=== PATIENT | female | born 1950 | race Caucasian/White ===

== ENCOUNTER 2017-07-01 15:12 | Outpatient (CLI) | payer BC, MEDICARE ==
--- NOTE | 2017-07-01 16:30 | RAD ---
2 VIEWS ABDOMEN: Date: 07/01/17 HISTORY: Loose bowel movements for past 2 weeks. FINDINGS: There are calcifications overlying both the superior pole and inferior pole left renal shadow, likely related to left nephrolithiasis. Largest calculus overlying the inferior pole measures 6.0 mm. No ad ditional suspicious calcifications are seen. The right renal shadow is mostly obscured by bowel gas a nd retained fecal material in the colon. Multiple phleboliths overlie the pelvis, which limits evalua tion for suspicious calcifications in the region of the distal ureters. Bowel gas pattern is overall nonspecific. Degenerative changes noted in the spine. IMPRESSION: 1. Left nephrolithiasis. 2. Nonspecific bowel gas pattern. POS: [facility]
== END 2017-07-01 15:13 | disposition home or self-care (01) ==
LOC: SCSRAD 15:12
PROVIDERS: ATTEND Family Medicine
DX: N20.0 Calculus of kidney (principal); R10.84 Generalized abdominal pain
CPT/HCPCS: 74019

== ENCOUNTER 2017-10-09 07:24 | Day surgery (SDC) | payer BC ==
[2017-10-08 17:13] VITALS: BMI 22.4
[2017-10-09] MEDS ORDERED: PROPOFOL 200 MG/20 ML VIAL ONE (09:19)
[2017-10-09] MEDS ORDERED: Dexamethasone 20 MG/5 ML VIAL ONE (09:19)
[2017-10-09] MEDS ORDERED: diphenhydrAMINE 50 MG/ML VIAL ONE (09:19)
[2017-10-09] MEDS ORDERED: Metoclopramide HCl 10 MG/2 ML VIAL ONE (09:19)
[2017-10-09] MEDS ORDERED: ePHEDrine/0.9% NaCl/PF SYRINGE 50 mg/10 ml ONE (09:19)
[2017-10-09] MEDS ORDERED: Lidocaine 1% PF 5 ML VIAL ONE (09:19)
--- NOTE | 2017-10-09 09:32 | RAD ---
ABDOMEN 1 VIEW: Date: 10/09/17 HISTORY: Preoperative exam. COMPARISON: None. FINDINGS: Nonspecific bowel gas pattern. No suspicious densities projecting over either renal silhouette or dena ng the course of either ureter. Phleboliths in the left and right hemipelvis are noted. IMPRESSION: Nonspecific bowel gas pattern. POS: [facility]
[2017-10-09] MEDS ORDERED: Fentanyl 100 MCG/2 ML VIAL ONE (09:39)
[2017-10-09] MEDS ORDERED: Iothalamate Meglumine 60% 50 ML VIAL FS ONE (10:00)
--- NOTE | 2017-10-09 12:23 | OP ---
DATE OF PROCEDURE: 10/09/2017 PREOPERATIVE DIAGNOSIS: Left ureteral stone. POSTOPERATIVE DIAGNOSIS: Left ureteral stone. PROCEDURE PERFORMED: Left ESWL. SURGEON: Dr. Juan Banegas. ANESTHETIC: General. ESTIMATED BLOOD LOSS: Not recorded. FINDINGS: She had a filling defect in the mid left ureter, just lateral and distal to the transverse process, this was treated with 1000 shocks and appeared to completely disappear. She also had anoth er filling defect down in the distal ureter that was treated with 2000 shocks. It may well have been a stone or a piece of the stone that was proximal. It is difficult to tell, but this did also appea r to completely break up and disappear, although it took about 2000 shocks to do that. No stent was left at the end of the case. OPERATIVE TECHNIQUE: After obtaining written and verbal consent from the patient, [facility] She received some IV antibiotics. She was placed in supine position on the desiree tment table. A KUB did not obviously show the stone in the proximal ureter, which is where it was 2 days ago on CAT scan. She had phleboliths in the pelvis. None of them had looked all that suspiciou s for stone. For this reason, she was placed in the dorsal lithotomy position, sterilely prepped and draped and cystoscopy was performed. The retrograde study was done that did show a filling defect i n the mid ureter. She was coupled with the lithotripter unit, taken out of and we did leave a Pollac k catheter in the left ureter, secured to a Steve catheter coming out of her urethra, so we could inj ect contrast and we treated this area and it disappeared after about 1000 shocks. We then slowly bro ught the Pollack catheter down. Injecting contrast, we did find another area in the pelvis where the re was a filling defect that we treated with a total of 2000 shocks and it broke up more like a stone in this region. It is hard to tell as these are probably not very dense, I mean the one in the dist al ureter was more typical of a stone, though filling defect in the proximal ureter certainly was con sistent with not an air bubble. I am not sure if one of these represents the stone and the other one does not, but we did treat both of these areas with suspicion that they were stones. At the end of the procedure, contrast would come down easily by the area where the distal stone was. For this reas on, a stent was not passed. She was, at this point, awakened, extubated, and [facility].
== END 2017-10-09 14:40 | disposition home or self-care (01) ==
LOC: SDC 07:24
PROVIDERS: ATTEND Urology
PROC: 0TF7XZZ Fragmentation in Left Ureter, External Approach (ICD-10-PCS; principal; 2017-10-09)
DX: N20.1 Calculus of ureter (principal); I10 Essential (primary) hypertension; Z79.899 Other long term (current) drug therapy
CPT/HCPCS: 74018; C1758; J1100; J1200; J2001; J2704; J2765; J3010; Q9961

== ENCOUNTER 2018-10-03 13:11 | Emergency (ER) | payer BC ==
[2018-10-03 13:36] LABS: #Eosinphils 0.1 thou/uL (0.0-0.7); #Lymphocytes 1.1 thou/uL (1.20-3.40); #Monocytes 0.4 thou/uL (0.11-0.59); #Neutrophils 3.7 thou/uL (1.40-6.50); %Basophils 0.4 % (0.0-1.0); %Eosinophils 1.1 % (0.0-10.0); %Lymphocytes 21.2 % (21.0-51.0); %Monocytes 6.8 % (0.0-10.0); %Neutrophils 70.5 % (42.0-75.0); Hemoglobin 14.5 g/dL (12.0-16.0); Mean Corpuscular HGB CONC 34.3 g/dL (32.0-36.0); Mean Corpuscular Hemoglobin 31.2 pg (27.0-31.0); Mean Corpuscular Volume 90.9 fL (78.0-98.0); Mean Platelet Volume 6.8 fL (7.4-10.4); Platelet Count 215 thou/uL (130-400); RBC Distribution Width 11.3 % (11.5-14.5); Red Blood Cell (RBC) Count 4.64 mill/uL (4.20-5.40); White Blood Cell (WBC) Count 5.2 thou/uL (4.8-10.8)
--- NOTE | 2018-10-03 13:38 | RAD ---
XR Chest 1 View Portable HISTORY: Chest pain COMPARISON: 08/14/2016 FINDINGS: The heart size is normal. The lungs are well expanded without focal areas of consolidation, pneumothorax or pleural effusions. IMPRESSION: No radiographic evidence of acute cardiopulmonary process.
[2018-10-03 14:05] LABS: ALT (SGPT) 12 U/L (8-55); AST (SGOT) 17 U/L (5-34); Albumin 4.3 g/dL (3.4-4.8); Alkaline Phosphatase 80 U/L (40-150); Anion Gap 10 mmol/L (10-20); BUN (Urea Nitrogen) 16 mg/dL (9.8-20.1); Bilirubin, Total 0.5 mg/dL (0.2-1.2); Calc. Creatinine Clearance 0 mL/min (70-130); Calcium 9.7 mg/dL (7.8-10.44); Carbon Dioxide 26 mmol/L (23-31); Chloride 107 mmol/L (98-107); Estimated GFR-MDRD 80; Globulin 2.2 g/dL (2.4-3.5); Glucose 146 mg/dL (80-115); Potassium 3.7 mmol/L (3.5-5.1); Protein, Total 6.5 g/dL (6.0-8.3); Sodium 139 mmol/L (136-145)
== END 2018-10-03 14:40 | disposition home or self-care (01) ==
LOC: ERS 13:11
DX: R07.9 Chest pain, unspecified (principal); I10 Essential (primary) hypertension; F41.9 Anxiety disorder, unspecified
CPT/HCPCS: 71045; 80053; 84484; 85025; 93005

== ENCOUNTER 2019-12-30 12:40 | Outpatient (CLI) | payer BC ==
--- NOTE | 2019-12-30 13:15 | RAD ---
XR Lumbar Spine Bending Min 4V History: Low back pain Comparison: None. Findings: 5 nonrib-bearing lumbar type vertebrae. Moderate facet arthrosis at L4-5 high-grade facet a rthrosis at L5-S1. Narrowed interspinous space L2-S1 with flattening of the spinous processes sclerosis and subcortical cysts. 1 mm L3-4 and 2 mm L4-5 retrolisthesis. Advanced L5-S1 degenerative disc space height loss. No signif icant translation with flexion or extension. Narrowing of the SI joints bilaterally with sclerosis and osteophyte formation. Lung bases are clear. Impression: Moderate spondylosis. No abnormal translation with flexion or extension.
== END 2019-12-30 12:41 | disposition home or self-care (01) ==
LOC: SCSRAD 12:40
PROVIDERS: ATTEND Family Medicine
DX: M51.36 Other intervertebral disc degeneration, lumbar region (principal)
CPT/HCPCS: 72120

== ENCOUNTER 2020-02-04 09:06 | Outpatient (CLI) | payer OTHER | END 2020-02-04 09:07 | disposition home or self-care (01) | PROVIDERS: ATTEND Family Medicine | DX: M43.16 Spondylolisthesis, lumbar region (principal); M43.18 Spondylolisthesis, sacral and sacrococcygeal region; M46.96 Unspecified inflammatory spondylopathy, lumbar region ==

== ENCOUNTER 2021-09-04 12:06 | Observation (INO) | payer BC ==
[~2021-09-04 12:06] MED LIST: Iopamidol-370 76% 500 ML 1 ML ONE
[2021-09-04 13:00] LABS: #Monocytes 0.4 thou/uL (0.11-0.59); #Neutrophils 4.7 thou/uL (1.40-6.50); %Basophils 0.1 % (0.0-1.0); %Eosinophils 0.5 % (0.0-10.0); %Lymphocytes 16.6 % (21.0-51.0); %Monocytes 6.4 % (0.0-10.0); %Neutrophils 76.3 % (42.0-75.0); Hemoglobin 16.5 g/dL (12.0-16.0); Mean Corpuscular HGB CONC 32.6 g/dL (32.0-36.0); Mean Corpuscular Hemoglobin 30.2 pg (27.0-31.0); Mean Corpuscular Volume 92.8 fL (78.0-98.0); Mean Platelet Volume 6.9 fL (7.4-10.4); Platelet Count 237 thou/uL (130-400); RBC Distribution Width 11.3 % (11.5-14.5); Red Blood Cell (RBC) Count 5.44 mill/uL (4.20-5.40); White Blood Cell (WBC) Count 6.1 thou/uL (4.8-10.8)
[2021-09-04 13:16] LABS: ALT (SGPT) 21 U/L (8-55); AST (SGOT) 18 U/L (5-34); Albumin 4.5 g/dL (3.4-4.8); Alkaline Phosphatase 85 U/L (40-110); Anion Gap 15 mmol/L (10-20); BUN (Urea Nitrogen) 20 mg/dL (9.8-20.1); Calc. Creatinine Clearance 0 mL/min (70-130); Calcium 9.6 mg/dL (7.8-10.44); Carbon Dioxide 29 mmol/L (23-31); Chloride 102 mmol/L (98-107); Estimated GFR 83; Globulin 2.4 g/dL (2.4-3.5); Glucose 104 mg/dL (80-115); Lipase 16 U/L (8-78); Potassium 3.7 mmol/L (3.5-5.1); Protein, Total 6.9 g/dL (5.8-8.1); Sodium 142 mmol/L (136-145)
[2021-09-04 17:23] LABS: Bacteria/HPF 3+ HPF (None Seen); Bilirubin Negative (Negative); Blood, Urine 1+ (Negative); Clarity Clear (Clear); Glucose, Urine (Dipstick) Normal (Negative); Ketone, Urine 20 mg/dL (Negative); Leukocyte 25 Leu/uL (Negative); Nitrite 2+ (Negative); Protein, Urine (Dipstick) Negative (Neg-Trace); RBC/HPF 0-3 HPF (0-3); Specific Gravity, Urine 1.015 (1.002-1.036); Squamous Epithelial 0-3 HPF (0-3); Urobilinogen Normal mg/dL (Less than 2)
[2021-09-04 18:11] LABS: Troponin I 0.012 ng/mL (< 0.028)
[2021-09-04] MEDS ORDERED: cefTRIAXone\\ROCEPHIN 1 GM VIAL ONE (19:01)
[2021-09-04] MEDS ORDERED: Acetaminophen 325 MG TAB PO PRN (21:54)
[2021-09-04] MEDS ORDERED: Acetaminophen 650 MG Suppository PR PRN (21:54)
[2021-09-04] MEDS ORDERED: Ondansetron PF 4 MG/2 ML Vial IVP PRN (21:54)
[2021-09-04] MEDS ORDERED: Nitroglycerin 0.4 MG TAB (25 Tab Bottle) SL PRN (21:54)
[2021-09-04] MEDS ORDERED: Ondansetron ODT 4 MG TAB PO PRN (21:54)
[2021-09-04 22:08] LABS: Troponin I Less than 0.010 ng/mL (< 0.028)
[2021-09-04] MEDS ORDERED: Aspirin Chewable 81 MG TAB PO SCH ×2 (22:15→23:54)
[2021-09-04 22:33] LABS: SARS-CoV-2 NAA Rapid Test Not Detected (NotDetected)
[2021-09-04] MEDS ORDERED: Aspirin Chewable 81 MG TAB ONE (23:11)
[2021-09-05] MEDS ORDERED: Aspirin Chewable 81 MG TAB ONE ×3 (00:36→00:38)
[2021-09-05 04:38] LABS: #Basophils 0.1 thou/uL (0.0-0.2); #Eosinphils 0.1 thou/uL (0.0-0.7); #Lymphocytes 1.8 thou/uL (1.20-3.40); #Monocytes 0.5 thou/uL (0.11-0.59); #Neutrophils 2.5 thou/uL (1.40-6.50); %Basophils 1.2 % (0.0-1.0); %Eosinophils 2.3 % (0.0-10.0); %Lymphocytes 36.5 % (21.0-51.0); %Monocytes 10.2 % (0.0-10.0); %Neutrophils 49.8 % (42.0-75.0); Mean Corpuscular HGB CONC 32.2 g/dL (32.0-36.0); Mean Corpuscular Hemoglobin 30.7 pg (27.0-31.0); Mean Corpuscular Volume 95.4 fL (78.0-98.0); Mean Platelet Volume 6.8 fL (7.4-10.4); Platelet Count 208 thou/uL (130-400); RBC Distribution Width 11.4 % (11.5-14.5); Red Blood Cell (RBC) Count 4.88 mill/uL (4.20-5.40)
[2021-09-05 05:00] LABS: Anion Gap 13 mmol/L (10-20); BUN (Urea Nitrogen) 16 mg/dL (9.8-20.1); Calc. Creatinine Clearance 78 mL/min (70-130); Calcium 8.7 mg/dL (7.8-10.44); Carbon Dioxide 25 mmol/L (23-31); Chloride 105 mmol/L (98-107); Estimated GFR 94; Glucose 87 mg/dL (80-115); Potassium 3.1 mmol/L (3.5-5.1); Sodium 140 mmol/L (136-145)
[2021-09-05] MEDS ORDERED: Acetaminophen 325 MG TAB ONE (05:12)
[2021-09-05 07:54] VITALS: BMI 21.5
[2021-09-05] MEDS ORDERED: ADENOSINE 60 MG/20 ML VIAL ONE (08:14)
[2021-09-05] MEDS: Aspirin Chewable 81 MG TAB PO SCH (09:11)
[2021-09-05] MEDS ORDERED: cefTRIAXone\\ROCEPHIN 1 GM in Sodium Chloride 0.9% 100 ML IVPB SCH (20:00)
[2021-09-06 06:48] LABS: #Eosinphils 0.2 thou/uL (0.0-0.7); #Lymphocytes 1.6 thou/uL (1.20-3.40); #Monocytes 0.5 thou/uL (0.11-0.59); #Neutrophils 2.8 thou/uL (1.40-6.50); %Basophils 0.4 % (0.0-1.0); %Eosinophils 3.3 % (0.0-10.0); %Lymphocytes 31.5 % (21.0-51.0); %Neutrophils 55.9 % (42.0-75.0); Mean Corpuscular HGB CONC 32.9 g/dL (32.0-36.0); Mean Corpuscular Hemoglobin 30.7 pg (27.0-31.0); Mean Corpuscular Volume 93.4 fL (78.0-98.0); Mean Platelet Volume 7.1 fL (7.4-10.4); Platelet Count 196 thou/uL (130-400); RBC Distribution Width 11.4 % (11.5-14.5); Red Blood Cell (RBC) Count 4.87 mill/uL (4.20-5.40)
[2021-09-06 06:52] LABS: ALT (SGPT) 14 U/L (8-55); AST (SGOT) 14 U/L (5-34); Albumin 3.6 g/dL (3.4-4.8); Alkaline Phosphatase 64 U/L (40-110); Anion Gap 12 mmol/L (10-20); BUN (Urea Nitrogen) 24 mg/dL (9.8-20.1); Bilirubin, Total 0.4 mg/dL (0.2-1.2); Calc. Creatinine Clearance 72 mL/min (70-130); Calcium 8.8 mg/dL (7.8-10.44); Carbon Dioxide 27 mmol/L (23-31); Chloride 105 mmol/L (98-107); Estimated GFR 88; Globulin 2.2 g/dL (2.4-3.5); Glucose 86 mg/dL (80-115); Potassium 3.3 mmol/L (3.5-5.1); Protein, Total 5.8 g/dL (5.8-8.1); Sodium 141 mmol/L (136-145)
[2021-09-06] MEDS ORDERED: Atorvastatin Calcium 10 MG TAB PO SCH (09:00)
[2021-09-06] MEDS ORDERED: Losartan 25 MG TAB PO SCH (09:00)
[2021-09-06] MEDS: Aspirin Chewable 81 MG TAB PO SCH (09:56)
[2021-09-06] MEDS ORDERED: Cefdinir 300 MG CAP PO SCH ×2 (10:00→21:00)
[2021-09-06 12:25] VITALS: BP 127/61; TEMP 97.5
== END 2021-09-06 12:23 | disposition home or self-care (01) ==
LOC: ERS 12:06 → ERHOLD 19:34 → 2SW 09-05 07:51
PROVIDERS: ADMIT Student in an Organized Health Care Education/Training Program; ATTEND Student in an Organized Health Care Education/Training Program
DX: R07.2 Precordial pain (principal); R91.1 Solitary pulmonary nodule; N13.2 Hydronephrosis with renal and ureteral calculous obstruction; N30.00 Acute cystitis without hematuria; K57.30 Diverticulosis of large intestine without perforation or abscess without bleeding; Z20.822 Contact with and (suspected) exposure to COVID-19; K76.89 Other specified diseases of liver; I10 Essential (primary) hypertension; M79.7 Fibromyalgia; Z79.899 Other long term (current) drug therapy
CPT/HCPCS: 36415; 71045; 71260; 74177; 78452; 80048; 80053; 81003; 81015; 82550; 83690; 84484; 85025; 87077; 87086; 87186; 93005; 93017; 94760; 96361; 96365; 96376; A9500; G0378; J0153; J0696; J3490; Q9967

== ENCOUNTER 2021-11-29 08:35 | Outpatient (CLI) | payer BC | END 2021-11-29 08:36 | disposition home or self-care (01) | LOC: CT 08:35 | PROVIDERS: ATTEND Internal Medicine Critical Care Medicine | DX: R91.1 Solitary pulmonary nodule (principal); J98.4 Other disorders of lung; E04.2 Nontoxic multinodular goiter; N20.0 Calculus of kidney; K76.9 Liver disease, unspecified | CPT/HCPCS: 71250 ==

== ENCOUNTER 2021-12-14 11:45 | Outpatient (CLI) | payer BC | END 2021-12-14 11:46 | disposition home or self-care (01) | LOC: PET 11:45 | PROVIDERS: ATTEND Internal Medicine Critical Care Medicine | DX: R91.1 Solitary pulmonary nodule (principal) | CPT/HCPCS: 78815; A9552 ==

== ENCOUNTER 2023-03-31 17:55 | Emergency (ER) | payer MEDICARE, BC ==
[2023-03-31 19:47] LABS: Bacteria/HPF None Seen HPF (None Seen); Bilirubin Negative (Negative); Blood, Urine Negative (Negative); CAUTI Indications for Culture Fever or rigors; Clarity Clear (Clear); Glucose, Urine (Dipstick) Normal (Negative); Ketone, Urine Negative (Negative); Leukocyte Negative Leu/uL (Negative); Nitrite Negative (Negative); Protein, Urine (Dipstick) Negative (Neg-Trace); RBC/HPF 0-3 HPF (0-3); Specific Gravity, Urine 1.013 (1.002-1.036); Squamous Epithelial None Seen HPF (0-3); Urobilinogen Normal mg/dL (Less than 2); WBC/HPF 0-3 HPF (0-3)
[2023-03-31 19:52] LABS: Urine Culture Reflex No No
[2023-03-31 20:31] LABS: SARS-CoV-2 NAA Rapid Test Not Detected (NotDetected)
[2023-03-31] MEDS ORDERED: Metoclopramide HCl 10 MG (2 mL) VIAL ONE (20:53)
[2023-03-31] MEDS ORDERED: diphenhydrAMINE 50 MG/ML VIAL ONE (20:53)
[2023-03-31] MEDS ORDERED: Ketorolac Tromethamine 30 MG (1 mL) VIAL ONE (21:06)
[2023-03-31 21:35] LABS: #Monocytes 0.4 thou/uL (0.11-0.59); #Neutrophils 4.6 thou/uL (1.40-6.50); %Basophils 0.2 % (0.0-1.0); %Eosinophils 0.2 % (0.0-10.0); %Lymphocytes 15.1 % (21.0-51.0); %Monocytes 6.7 % (0.0-10.0); %Neutrophils 77.5 % (42.0-75.0); Hematocrit 42.9 % (36.0-47.0); Mean Corpuscular Hemoglobin 30.4 pg (27.0-31.0); Mean Platelet Volume 9.2 fL (7.4-10.4); Platelet Count 235 10x3/uL (130-400); RBC Distribution Width 12.6 % (11.5-14.5); Red Blood Cell (RBC) Count 4.93 mill/uL (4.20-5.40)
[2023-03-31 21:58] LABS: ALT (SGPT) 20 U/L (8-55); AST (SGOT) 20 U/L (5-34); Albumin 4.3 g/dL (3.4-4.8); Alkaline Phosphatase 96 U/L (40-110); Anion Gap 14 mmol/L (10-20); BUN (Urea Nitrogen) 12 mg/dL (9.8-20.1); Bilirubin, Total 0.7 mg/dL (0.2-1.2); Calc. Creatinine Clearance 0 mL/min (70-130); Calcium 9.1 mg/dL (7.8-10.44); Carbon Dioxide 20 mmol/L (23-31); Chloride 100 mmol/L (98-107); Estimated GFR 82; Globulin 2.2 g/dL (2.4-3.5); Glucose 101 mg/dL (83-110); Lipase 10 U/L (8-78); Protein, Total 6.5 g/dL (5.8-8.1); Sodium 130 mmol/L (136-145)
[2023-03-31 22:01] LABS: Troponin I Less than 0.010 ng/mL (< 0.028)
== END 2023-03-31 22:15 | disposition home or self-care (01) ==
LOC: ERS 17:55
DX: E86.0 Dehydration (principal); R53.1 Weakness; I10 Essential (primary) hypertension; F41.9 Anxiety disorder, unspecified; M79.7 Fibromyalgia; H54.7 Unspecified visual loss; Z79.899 Other long term (current) drug therapy
CPT/HCPCS: 0240U; 71045; 80053; 81001; 83605; 83690; 84484; 85025; 87040; 93005; 96365; 96375; 99285; 36415; J1200; J1885; J2765

== ENCOUNTER 2023-11-21 13:22 | Outpatient (CLI) | payer MEDICARE, BC | END 2023-11-21 13:23 | disposition home or self-care (01) | LOC: BICMAMMO 13:22 | PROVIDERS: ATTEND Family Medicine | DX: Z12.31 Encounter for screening mammogram for malignant neoplasm of breast (principal) | CPT/HCPCS: 77063; 77067 ==

== ENCOUNTER 2024-03-13 14:05 | Emergency (ER) | payer MEDICARE, BC ==
[2024-03-13] MEDS ORDERED: Ketorolac Tromethamine 30 MG (1 mL) VIAL ONE (17:40)
[2024-03-14] MEDS ORDERED: Ondansetron PF 4 MG/2 ML Vial ONE
== END 2024-03-13 19:34 | disposition home or self-care (01) ==
LOC: ERS 14:05
DX: R10.31 Right lower quadrant pain (principal); R10.32 Left lower quadrant pain; I10 Essential (primary) hypertension; W11.XXXA Fall on and from ladder, initial encounter
CPT/HCPCS: 71046; 72125; 74176; J1885; 96372

== ENCOUNTER 2024-11-17 10:42 | Outpatient (CLI) | payer MEDICARE, BC | END 2024-11-17 10:43 | disposition home or self-care (01) | LOC: BICCT 10:42 | PROVIDERS: ATTEND Internal Medicine Critical Care Medicine | DX: R91.8 Other nonspecific abnormal finding of lung field (principal) | CPT/HCPCS: 71250 ==